=== PATIENT | male | born 1980 | race Caucasian/White ===

== ENCOUNTER 2023-03-15 10:56 | Emergency (ER) | payer BC, OTHER ==
[~2023-03-15] VITALS: Ht 180.3 cm; Wt 111.1 kg
[2023-03-15] MEDS ORDERED: FAMOTIDINE 20 MG/2 ML VIAL IV STA (11:28)
[2023-03-15] MEDS ORDERED: ONDANSETRON HCL INJ 2MG/ML 2ML 2 MG/ML VIAL IV STA ×2 (11:28→13:57)
[2023-03-15] MEDS ORDERED: KETOROLAC TROMETHAMINE 30 MG/ML VIAL IV STA (11:29)
[2023-03-15] MEDS ORDERED: SODIUM CHLORIDE 0.9% 1000ML 1,000 ML IV ONE (11:30)
[2023-03-15] MEDS ORDERED: ONDANSETRON HCL INJ 2MG/ML 2ML 2 MG/ML VIAL ONE (11:33)
[2023-03-15] MEDS ORDERED: SODIUM CHLORIDE 0.9% 1000ML 1,000 ML ONE (11:33)
[2023-03-15] MEDS ORDERED: FAMOTIDINE 20 MG/2 ML VIAL IV ONE (11:34)
[2023-03-15] MEDS ORDERED: IOPAMIDOL 370 MG/ML 100 ML INFUS..BTL INJ ONE (11:58)
[2023-03-15] MEDS ORDERED: METRONIDAZOLE 500MG/NS 100ML 100 ML IV ONE ×2 (13:30→13:45)
[2023-03-15] MEDS ORDERED: Morphine 4mg INJECTION 4 MG/ML INJ ONE (13:45)
[2023-03-15] MEDS ORDERED: Morphine 4mg INJECTION 4 MG/ML INJ IV ONE (13:45)
[2023-03-15] MEDS ORDERED: PEPCID20 MG PO (14:21)
[2023-03-15] MEDS ORDERED: ONDANSETRON ODT4 MG PO (14:22)
[2023-03-15] MEDS ORDERED: BACTRIM DS TAB1 EACH PO (14:29)
== END 2023-03-15 14:47 | disposition home or self-care (01) ==
LOC: FSED 11:16
DX: R11.2 Nausea with vomiting, unspecified (principal); K52.9 Noninfective gastroenteritis and colitis, unspecified; K76.0 Fatty (change of) liver, not elsewhere classified
CPT/HCPCS: 74177; 76705; 80048; 80076; 81003; 82553; 84484; 85025; 96374; 96375; 96376; 99284; J1885; J2270; J2405; J7030; Q9967; 93005

== ENCOUNTER 2024-06-22 07:47 | Emergency (ER) | payer OTHER ==
[~2024-06-22] VITALS: Ht 180.3 cm; Wt 108.9 kg
[~2024-06-22 07:47] MED LIST: BACTRIM DS TAB1 EACH PO; ONDANSETRON ODT4 MG PO; PEPCID20 MG PO
[2024-06-22 07:54] VITALS: PULSE 67; RESP 18; TEMP 97.9; O2SAT 98
[2024-06-22] MEDS: TRAMADOL HCL 50 MG TAB PO ONE (08:12)
[2024-06-22] MEDS: KETOROLAC TROMETHAMINE 30 MG/ML VIAL IM STA (08:13)
[2024-06-22] MEDS ORDERED: SALONPAS PATCH1 EAC1 ID (09:14)
[2024-06-22] MEDS ORDERED: CYCLOBENZAPRINE5 MG PO (09:15)
[2024-06-22] MEDS ORDERED: KETOROLAC TROME10 MG PO (09:15)
== END 2024-06-22 09:25 | disposition home or self-care (01) ==
LOC: FSED 07:50
DX: M54.50 Low back pain, unspecified (principal); M51.37 Other intervertebral disc degeneration, lumbosacral region; K57.30 Diverticulosis of large intestine without perforation or abscess without bleeding; K40.90 Unilateral inguinal hernia, without obstruction or gangrene, not specified as recurrent
CPT/HCPCS: 74176; 99283; J1885